=== PATIENT | male | born 1960 | race African-American/Black ===

== ENCOUNTER 2023-09-08 05:05 | Inpatient (IN) | payer BC, OTHER ==
[~2023-09-08] VITALS: Ht 182.9 cm; Wt 111.1 kg
[2023-09-08 05:35] VITALS: PULSE 79; RESP 22; O2SAT 92
[2023-09-08 05:36] LABS: Basophils # (auto) 0 10 ^3/uL (0-0.2); Basophils % (auto) 0.5 % (0.0-2.0); Eosinophils # (auto) 0.3 10 ^3/uL (0-0.8); Eosinophils % (auto) 4.9 % (0.0-7.0); Hemoglobin 14.7 g/dL (13.5-17.5); Lymphocytes # (auto) 2.4 10 ^3/uL (0.4-5.4); Lymphocytes % (auto) 35.5 % (10.0-50.0); Mean Corpuscular Hemoglobin 28.7 pg (28.0-32.0); Mean Corpuscular Hgb Conc. 33.3 g/dL (32.0-36.0); Mean Corpuscular Volume 86.3 fL (80.0-100.0); Monocytes # (auto) 0.6 10 ^3/uL (0-1.3); Monocytes % (auto) 8.3 % (0.0-12.0); Neutrophils # (auto) 3.5 10 ^3/uL (1.6-8.6); Neutrophils % (auto) 50.8 % (37.0-80.0); Nucleated Red Blood Cells % 0.1 %; Red Cell Distribution Width 15.4 % (11.8-14.3); White Blood Cell 6.9 10^3/uL (4.4-10.8)
[2023-09-08 05:50] LABS: INR 0.97 (0.9-1.15); Partial Thromboplastin Time 27.6 SEC (24.5-34.5); Prothrombin Time 10.3 sec (9.3-11.8)
[2023-09-08 05:55] LABS: Alanine Aminotransferase 19 U/L (7-40); Albumin 4.2 g/dL (3.2-4.8); Alkaline Phosphatase 104 U/L (46-116); Anion Gap 9 (5-15); Aspartate Aminotransferase 18 U/L (13-40); BUN/Creatinine Ratio 7.9 (10.0-20.0); Blood Urea Nitrogen 10 mg/dL (9-23); Calcium 9.4 mg/dL (8.7-10.4); Carbon Dioxide 23 mmol/L (20-30); Chloride 109 mmol/L (98-107); Glucose 119 mg/dL (74-106); Magnesium 1.9 mg/dL (1.6-2.6); Potassium 3.7 mmol/L (3.5-5.1); Sodium 141 mmol/L (136-145)
[2023-09-08 05:56] LABS: Bilirubin, Total 0.3 mg/dL (0.2-1.0); Total Protein 6.9 g/dL (5.7-8.2)
[2023-09-08 07:25] LABS: Urine Bacteria FEW /hpf (None Seen); Urine Blood Negative /uL (Negative); Urine Clarity Clear (Clear); Urine Mucus FEW (None Seen); Urine Protein, UAD Negative (Negative); Urine Specific Gravity 1.008 (1.001-1.035); Urine Sperm PRESENT /hpf (None Seen); Urine Urobilinogen Normal (Negative); Urine WBC 2 /hpf (0 - 3)
[2023-09-08 07:29] LABS: Urine Color Straw (Yellow)
[2023-09-08 07:56] VITALS: RESP 22; O2SAT 96
[2023-09-08] MEDS: AZITHROMYCIN 500MG/ 250ML 250 ML IV ONE (08:11)
[2023-09-08] MEDS: cefTRIAXone 2GM/50ML D5W 50 ML IV ONE (08:11)
[2023-09-08] MEDS ORDERED: HYDROcodone-ACET 5/325MG TAB PO PRN (10:15)
[2023-09-08] MEDS ORDERED: NITROGLYCERIN 0.4 MG SL TAB SL PRN (10:15)
[2023-09-08] MEDS ORDERED: MORPHINE SULFATE INJ 2 MG/ml SYRG IV PRN (10:15)
[2023-09-08] MEDS ORDERED: DOCUSATE SOD 100 MG CAP PO PRN (10:15)
[2023-09-08] MEDS ORDERED: ACETAMINOPHEN 325 MG TAB PO PRN (10:15)
[2023-09-08] MEDS ORDERED: ONDANSETRON HCL 4 MG/2 ML VIAL IV PRN (10:15)
[2023-09-08] MEDS: FUROSEMIDE 40 MG TAB PO SCH (10:53)
[2023-09-08] MEDS: IPRATROPIUM BROM 0.5 MG/2.5ML INH SOL NEB SCH (12:00)
[2023-09-08] MEDS: ALBUTEROL SULF 2.5 MG/0.5ML(0.5%) NEB SOLN NEB SCH (12:00)
[2023-09-08 13:49] VITALS: BP 120/84; PULSE 83; RESP 18; TEMP 97.8; O2SAT 96
[2023-09-08 13:55] VITALS: O2SAT 96
[2023-09-08] MEDS: SODIUM CHLOR 0.9% PF (SALINE LOCK) 10ML VIAL/SYR IV SCH (14:10)
[2023-09-08] MEDS ORDERED: ARIP1TAB58 PO (14:48)
[2023-09-08] MEDS ORDERED: SERT-289 PO (14:48)
[2023-09-08] MEDS ORDERED: GABA-1250 PO (14:48)
[2023-09-08] MEDS ORDERED: FUR20T GT (14:48)
[2023-09-08] MEDS ORDERED: MIRT-93 PO (14:48)
[2023-09-08 16:00] VITALS: BP 142/87
[2023-09-08 17:16] VITALS: PULSE 71; RESP 16; O2SAT 98
[2023-09-08] MEDS ORDERED: ARIPIPRAZOLE 5 MG PO SCH (22:00)
[2023-09-08] MEDS ORDERED: methylPREDNISolone SOD SUCC 40 MG/ML VL IV SCH (22:00)
[2023-09-08] MEDS ORDERED: GABAPENTIN 300 MG CAP PO SCH (22:00)
[2023-09-09] MEDS ORDERED: cefTRIAXone 1GM/50ML D5W 50 ML IV SCH (09:00)
[2023-09-09] MEDS ORDERED: AZITHROMYCIN 500MG/ 250ML 250 ML IV SCH (10:00)
[2023-09-09] MEDS ORDERED: SERTRALINE HCL 50 MG TAB PO SCH (10:00)
== END 2023-09-08 17:26 | disposition left against medical advice (07) | DRG 205 ==
LOC: EDBD 05:05 → ER 05:05 → TELE 10:15
PROVIDERS: ADMIT Nurse Practitioner Family; ATTEND Nurse Practitioner Family
DX: R09.02 Hypoxemia (principal); J18.9 Pneumonia, unspecified organism; I11.0 Hypertensive heart disease with heart failure; Z53.29 Procedure and treatment not carried out because of patient's decision for other reasons; J45.909 Unspecified asthma, uncomplicated; E78.5 Hyperlipidemia, unspecified; I50.9 Heart failure, unspecified; F17.210 Nicotine dependence, cigarettes, uncomplicated; Z79.899 Other long term (current) drug therapy
CPT/HCPCS: 36415; 71045; 80053; 81001; 83605; 83735; 83880; 84484; 85025; 85610; 85730; 87040; 93005; 96365; 96368; G0378

== ENCOUNTER 2023-09-10 14:39 | Emergency (ER) | payer BC, OTHER ==
[~2023-09-10] VITALS: Ht 182.9 cm; Wt 108.3 kg
[~2023-09-10 14:39] MED LIST: ARIP1TAB58 PO; FUR20T GT; GABA-1250 PO; MIRT-93 PO; SERT-289 PO
[2023-09-10] MEDS: IPRATROPIUM BROM 0.5 MG/2.5ML INH SOL NEB ONE (15:38)
[2023-09-10] MEDS: ALBUTEROL SULF 2.5 MG/0.5ML(0.5%) NEB SOLN NEB ONE (15:39)
[2023-09-10 16:28] LABS: Basophils # (auto) 0 10 ^3/uL (0-0.2); Basophils % (auto) 0.6 % (0.0-2.0); Eosinophils # (auto) 0.2 10 ^3/uL (0-0.8); Eosinophils % (auto) 3.6 % (0.0-7.0); Hematocrit 41.6 % (41.0-53.0); Hemoglobin 13.9 g/dL (13.5-17.5); Lymphocytes # (auto) 2.4 10 ^3/uL (0.4-5.4); Lymphocytes % (auto) 36.6 % (10.0-50.0); Mean Corpuscular Hemoglobin 28.6 pg (28.0-32.0); Mean Corpuscular Hgb Conc. 33.4 g/dL (32.0-36.0); Mean Corpuscular Volume 85.8 fL (80.0-100.0); Monocytes # (auto) 0.7 10 ^3/uL (0-1.3); Monocytes % (auto) 9.8 % (0.0-12.0); Neutrophils # (auto) 3.3 10 ^3/uL (1.6-8.6); Neutrophils % (auto) 49.4 % (37.0-80.0); Nucleated Red Blood Cells % 0.2 %; Red Blood Cells 4.85 10^6/uL (4.5-5.90); Red Cell Distribution Width 15.5 % (11.8-14.3); White Blood Cell 6.7 10^3/uL (4.4-10.8)
[2023-09-10 16:39] LABS: Chloride 108 mmol/L (98-107); Potassium 4.7 mmol/L (3.5-5.1); Sodium 142 mmol/L (136-145)
[2023-09-10 16:40] LABS: Anion Gap 4 (5-15); Carbon Dioxide 30 mmol/L (20-30)
[2023-09-10 16:41] LABS: Calcium 9.7 mg/dL (8.7-10.4)
[2023-09-10 16:46] LABS: BUN/Creatinine Ratio 9.7 (10.0-20.0); Blood Urea Nitrogen 14 mg/dL (9-23); Glucose 97 mg/dL (74-106)
[2023-09-10] MEDS ORDERED: ALBU108A5 IN (20:54)
[2023-09-10] MEDS ORDERED: FURO1TAB33 PO (20:54)
[2023-09-10 21:35] VITALS: BP 143/82; PULSE 69; RESP 18; TEMP 98.4; O2SAT 95
[2023-09-10] MEDS: DexAMETHasone SOD PHOS 10MG/1ML VIAL INJ IM ONE (21:35)
== END 2023-09-10 21:39 | disposition home or self-care (01) ==
LOC: ER 14:39
DX: R06.02 Shortness of breath (principal); R09.89 Other specified symptoms and signs involving the circulatory and respiratory systems; I11.0 Hypertensive heart disease with heart failure; I50.9 Heart failure, unspecified; J45.909 Unspecified asthma, uncomplicated; F17.210 Nicotine dependence, cigarettes, uncomplicated
CPT/HCPCS: 36415; 71045; 80048; 83880; 84484; 85025; 93005; 94640; 96372; 99285; J1100; J7644

== ENCOUNTER 2023-11-04 04:21 | Inpatient (IN) | payer BC, OTHER ==
[~2023-11-04] VITALS: Ht 182.9 cm; Wt 103.7 kg
[2023-11-04] VITALS (9 sets, daily range): BP systolic 130–144; BP diastolic 76–82; PULSE 63–87; RESP 14–18; TEMP 98.5; O2SAT 94–99
[~2023-11-04 04:21] MED LIST changes: +ALBU108A5 IN; +FURO1TAB33 PO
[2023-11-04] MEDS: IPRATROPIUM BROM 0.5 MG/2.5ML INH SOL NEB ONE (05:13)
[2023-11-04] MEDS: ALBUTEROL SULF 2.5 MG/0.5ML(0.5%) NEB SOLN NEB ONE (05:14)
[2023-11-04 07:00] LABS: Basophils # (auto) 0 10 ^3/uL (0-0.2); Basophils % (auto) 0.6 % (0.0-2.0); Eosinophils # (auto) 0.1 10 ^3/uL (0-0.8); Eosinophils % (auto) 1.7 % (0.0-7.0); Hemoglobin 14.4 g/dL (13.5-17.5); Lymphocytes # (auto) 1.7 10 ^3/uL (0.4-5.4); Mean Corpuscular Hemoglobin 30.3 pg (28.0-32.0); Mean Corpuscular Hgb Conc. 34.4 g/dL (32.0-36.0); Mean Corpuscular Volume 87.9 fL (80.0-100.0); Monocytes # (auto) 0.6 10 ^3/uL (0-1.3); Monocytes % (auto) 12.1 % (0.0-12.0); Neutrophils # (auto) 2.6 10 ^3/uL (1.6-8.6); Neutrophils % (auto) 51.6 % (37.0-80.0); Nucleated Red Blood Cells % 0.1 %; Red Blood Cells 4.77 10^6/uL (4.5-5.90); Red Cell Distribution Width 16.7 % (11.8-14.3); White Blood Cell 5.1 10^3/uL (4.4-10.8)
[2023-11-04 07:01] LABS: Urine Bacteria None Seen /hpf (None Seen)
[2023-11-04] MEDS: FUROSEMIDE 20 MG/2 ML VIAL IV ONE (07:10)
[2023-11-04 07:16] LABS: Partial Thromboplastin Time 28.9 SEC (24.5-34.5); Prothrombin Time 10.6 sec (9.3-11.8)
[2023-11-04 07:16] LABS: Urine Blood Negative /uL (Negative); Urine Clarity Clear (Clear); Urine Color Colorless (Yellow); Urine Protein, UAD Negative (Negative); Urine Specific Gravity 1.008 (1.001-1.035); Urine Urobilinogen Normal (Negative); Urine WBC 1 /hpf (0 - 3)
[2023-11-04] MEDS: SPIRONOLACTONE 25 MG TAB PO ONE (07:19)
[2023-11-04 07:20] LABS: Alanine Aminotransferase 10 U/L (7-40); Albumin 4.1 g/dL (3.2-4.8); Alkaline Phosphatase 102 U/L (46-116); Anion Gap 5 (5-15); Aspartate Aminotransferase 10 U/L (13-40); BUN/Creatinine Ratio 9.7 (10.0-20.0); Blood Urea Nitrogen 13 mg/dL (9-23); Calcium 9.2 mg/dL (8.7-10.4); Carbon Dioxide 27 mmol/L (20-30); Chloride 109 mmol/L (98-107); Glucose 109 mg/dL (74-106); Potassium 4.3 mmol/L (3.5-5.1); Sodium 141 mmol/L (136-145)
[2023-11-04 07:21] LABS: Bilirubin, Total 0.5 mg/dL (0.2-1.0); Total Protein 6.6 g/dL (5.7-8.2)
[2023-11-04] MEDS: AZITHROMYCIN 500MG/ 250ML 250 ML IV ONE (07:50)
[2023-11-04] MEDS: cefTRIAXone 1GM/50ML D5W 50 ML IV ONE (14:00)
[2023-11-04] MEDS ORDERED: ACETAMINOPHEN 325 MG TAB PO PRN (14:00)
[2023-11-04] MEDS ORDERED: ALBUTEROL SULF 2.5 MG/0.5ML(0.5%) NEB SOLN NEB PRN (14:00)
[2023-11-04] MEDS: ALBUTEROL SULF 2.5 MG/0.5ML(0.5%) NEB SOLN NEB SCH (14:13)
[2023-11-04] MEDS: IPRATROPIUM BROM 0.5 MG/2.5ML INH SOL NEB SCH (14:13)
[2023-11-04] MEDS: ENOXAPARIN SOD 100 MG/1 ML SYRINGE SC ONE (18:15)
[2023-11-04] MEDS: IOHEXOL 350 MG/ML 100ML IJ ONE (18:41)
[2023-11-04] MEDS ORDERED: OMEP-448 PO (21:44)
[2023-11-04] MEDS ORDERED: MIRTAZAPINE 30 MG TAB PO PRN (22:00)
[2023-11-04] MEDS: GABAPENTIN 300 MG CAP PO SCH (22:00)
[2023-11-04] MEDS: Aripiprazole 5 MG PO SCH (22:00)
[2023-11-05] MEDS ORDERED: cefTRIAXone 1GM/50ML D5W 50 ML IV SCH (09:00)
[2023-11-05] MEDS ORDERED: SERTRALINE HCL 50 MG TAB PO SCH (10:00)
[2023-11-05] MEDS ORDERED: AZITHROMYCIN 500MG/ 250ML 250 ML IV SCH (10:00)
[2023-11-05] MEDS ORDERED: ENOXAPARIN SOD 40 MG/0.4 ML SYRINGE SC SCH (10:00)
== END 2023-11-04 23:38 | disposition left against medical advice (07) | DRG 291 ==
LOC: EDBD 04:21 → ER 04:21 → OVERFLOW 13:55 → WEST WING 20:55
PROVIDERS: ADMIT Nurse Practitioner Family; ATTEND Nurse Practitioner Family
DX: I11.0 Hypertensive heart disease with heart failure (principal); I50.43 Acute on chronic combined systolic (congestive) and diastolic (congestive) heart failure; J18.9 Pneumonia, unspecified organism; J45.909 Unspecified asthma, uncomplicated; F17.210 Nicotine dependence, cigarettes, uncomplicated; K21.9 Gastro-esophageal reflux disease without esophagitis; E78.5 Hyperlipidemia, unspecified; Z53.29 Procedure and treatment not carried out because of patient's decision for other reasons
CPT/HCPCS: 36415; 71045; 71275; 80053; 81001; 83605; 83735; 83880; 84484; 85025; 85379; 85610; 85730; 93005; 94640; G0378